=== PATIENT | female | born 1955 | race African-American/Black ===

== ENCOUNTER 2016-10-26 19:46 | Emergency (ER) | payer OTHER ==
[~2016-10-26] VITALS: Ht 162.6 cm; Wt 76.2 kg
[2016-10-26 20:04] VITALS: BP 141/100
[2016-10-26] MEDS ORDERED: KEFLEX500 MG ORAL (20:08)
[2016-10-26] MEDS ORDERED: IBUPROFEN600 MG ORAL (20:08)
[2016-10-26] MEDS ORDERED: Cephalexin 500mg cap ORAL ONE (20:15)
[2016-10-26 20:37] VITALS: BP 141/100
--- NOTE | 2016-10-27 13:41 | Emergency Room Report ---
History of Present Illness General Chief Complaint: Pain Source: Patient Present Illness HPI Patient is a 61 female who presented after increased pain to the right nare. She had gradual onset of symptoms. Patient reported having intermittent pain for the past 3 days. There were no exacerbating or alleviating factors. Patient prior history of asthma. She reported having increased pain to the inside of her right nostril. She denied any fever. She denied any nasal bleeding. Pain is unchanged by position. Allergies: Coded Allergies: No Known Allergies (Unverified , 10/26/16) Patient History Past Medical History: see triage record Now: No Reviewed Nursing Documentation: PMH: Agreed, PSxH: Agreed Nursing Documentation-PMH Past Medical History: No History, Except For Hx Asthma: Yes Review of Systems All Other Systems: negative except mentioned in HPI Physical Exam Vital Signs Date Time Temp Pulse Resp B/P Pulse Ox O2 Delivery O2 Flow Rate FiO2 10/26/16 19:54 98.1 85 19 141/100 98 Room Air General Appearance: well appearing, no apparent distress, alert, GCS 15 Head: normocephalic, atraumatic ENT: hearing grossly normal, normal voice, other - small area to right nare with erythema and minimal swelling Neck: full range of motion, supple Respiratory: no respiratory distress, speaking full sentences Cardiovascular #1: normal inspection, regular rate, rhythm, no edema Gastrointestinal: normal inspection Musculoskeletal: normal inspection, back normal, no calf tenderness Neurologic: normal inspection, alert, oriented x3, responsive, drawing in machine tender III-XII nml as tested, normal gait Psychiatric: mood/affect normal Skin: no rash Medical Decision Making Diagnostic Impression: Primary Impression: Staphylococcus infection of nose ER Course Patient presented for nasal pain. Differential diagnosis included was not limited to fracture, abscess, polyp, tumor among others. Patient's benign exam and does not appear to require any further imaging or laboratory testing at this time. The patient is afebrile. The patient's the patient knows may have some underlying polyp but appears to be tender consistent with some infection. The patient was given oral antibiotics. Patient was advised that she would need followup with ears and throat doctor for further evaluation. The patient was given prescription for antibiotics. She is advised to recheck with her primary care physician for ENT referral. Last Vital Signs Date Time Temp Pulse Resp B/P Pulse Ox O2 Delivery O2 Flow Rate FiO2 10/26/16 20:37 98.1 78 19 141/100 98 Room Air Status: improved Disposition: HOME, SELF-CARE Condition: Stable Scripts Cephalexin* (KEFLEX*) 500 Mg Capsule 500 MG ORAL Q6H, #28 CAP 0 Refills Prov: Hans Montano 10/26/16 Ibuprofen* (MOTRIN*) 600 Mg Tablet 600 MG ORAL Q8H Y for For Pain, #30 TAB 0 Refills Prov: Hans Montano 10/26/16 Referrals: NON PHYSICIAN (PCP) Patient Instructions: Staphylococcal Infection Hans Montano Oct 27, 2016 13:41
== END 2016-10-26 20:38 | disposition home or self-care (01) ==
LOC: EMR 20:24
DX: A49.1 Streptococcal infection, unspecified site (principal); Z87.09 Personal history of other diseases of the respiratory system
CPT/HCPCS: 99284

== ENCOUNTER 2016-11-01 21:59 | Emergency (ER) | payer OTHER ==
[~2016-11-01] VITALS: Ht 170.2 cm; Wt 72.6 kg
[~2016-11-01 21:59] MED LIST: IBUPROFEN600 MG ORAL; KEFLEX500 MG ORAL
[2016-11-01 22:12] VITALS: BP 138/80
[2016-11-01] MEDS ORDERED: Lidocaine 1% MPF 10mg/ml 5ml ONE (22:54)
--- NOTE | 2016-11-01 22:54 | Emergency Room Report ---
History of Present Illness General Chief Complaint: Upper Respiratory Illness Source: Patient Present Illness HPI Is a 60-year-old female with no significant past medical history. She presents with effect on the sinus infection. She was here 6 days ago for swelling to the right nose/sinus area. Was diagnosed with MRSA the naris. She was given Bactrim and Keflex. She said it drained some and she felt better. Still has swollen area. Here for recheck. Denies any fever chills denies any nausea vomiting. No other complaint. Allergies: Coded Allergies: No Known Allergies (Unverified , 10/26/16) Patient History Past Medical History: see triage record, old chart reviewed Past Surgical History: none Pertinent Family History: none Social History: Denies: smoking Now: No Immunizations: other Reviewed Nursing Documentation: PMH: Agreed, PSxH: Agreed Nursing Documentation-PMH Past Medical History: No History, Except For Hx Asthma: Yes Review of Systems Eye: Denies: blurred vision, eye pain ENT: Denies: ear pain, nose congestion, throat swelling Respiratory: Denies: cough, shortness of breath Cardiovascular: Denies: chest pain, palpitations Gastrointestinal: Denies: abdominal pain, diarrhea, nausea, vomiting Musculoskeletal: Denies: back pain, joint pain Skin: Denies: rash Neurological: Denies: headache, numbness Endocrine: Denies: increased thirst, increased urine Hematologic/Lymphatic: Denies: easy bruising All Other Systems: negative except mentioned in HPI Physical Exam Vital Signs Date Time Temp Pulse Resp B/P Pulse Ox O2 Delivery O2 Flow Rate FiO2 11/01/16 22:05 98.6 80 16 145/84 98 Room Air vitals normal Sp02 EP Interpretation: reviewed, normal General Appearance: well appearing, no apparent distress, alert Head: normocephalic, atraumatic Eyes: bilateral eye EOMI, bilateral eye PERRL ENT: hearing grossly normal, normal pharynx, other - Right nare: 1.5 cm swollen turbinate. Neck: full range of motion, supple, no meningismus Respiratory: chest non-tender, lungs clear, normal breath sounds Cardiovascular #1: regular rate, rhythm, no murmur Gastrointestinal: normal bowel sounds, non tender, no mass, no organomegaly, no bruit, non-distended Musculoskeletal: back normal, gait/station normal, normal range of motion Psychiatric: mood/affect normal Skin: warm/dry Procedures Additional Procedure Procedure Narrative Procedure: aspiration Indication: Mass in nose Description:Local anesthetic of 1% lidocaine without epinephrine. A small amount injected. Using an 18-gauge needle I aspirated the mass. No pus. With a Q-tip to push pressure on it and there was just clear straw-colored liquid expressed. Swelling went down. Patient tolerated procedure without a problem. Medical Decision Making Diagnostic Impression: Primary Impression: Visit for wound check Additional Impression: Cyst of nasal cavity ER Course Patient with a cyst of the nasal cavity. Could get infected. Doubt neoplastic process. We'll need biopsy an ENT referral. This can be done as an outpatient. Last Vital Signs Date Time Temp Pulse Resp B/P Pulse Ox O2 Delivery O2 Flow Rate FiO2 11/01/16 22:12 78 14 Room Air 11/01/16 22:12 98.1 138/80 100 Status: improved Disposition: HOME, SELF-CARE Condition: Stable Referrals: [facility],REFERRING (PCP) Additional Instructions: Continue with antibiotics. Followup with your Dr. in 7 days. You may need a referral to see ENT DrPing for recheck and possible biopsy. BERTRAM ALMAZAN M.D. Nov 01, 2016 22:54
[2016-11-01] MEDS ORDERED: Lidocaine 1% Plain 30 ml INJ ONE (23:00)
[2016-11-01 23:16] VITALS: BP 132/75
== END 2016-11-01 23:15 | disposition home or self-care (01) ==
LOC: EMR 22:50
DX: J34.1 Cyst and mucocele of nose and nasal sinus (principal)
CPT/HCPCS: 30118; 99284; J2001; Z7502